=== PATIENT | female | born 1990 | race Caucasian/White ===

== ENCOUNTER 2021-11-18 14:00 | Emergency (ER) | payer OTHER ==
[~2021-11-18] VITALS: Ht 160 cm; Wt 72.6 kg
[~2021-11-18 14:00] MED LIST: COMPAZINE10 MG PO; Excedrin Extra1 EACH PO; HYDACE5 PO
[2021-11-18 19:16] LABS: Influenza A Negative (NEGATIVE); Influenza B Negative (NEGATIVE)
== END 2021-11-18 16:28 | disposition home or self-care (01) ==
LOC: ER 14:00
PROVIDERS: Physician Assistant
DX: R50.9 Fever, unspecified (principal); J02.9 Acute pharyngitis, unspecified; R05.9 Cough, unspecified; Z53.29 Procedure and treatment not carried out because of patient's decision for other reasons
CPT/HCPCS: 87804